=== PATIENT | female | born 1980 | race Caucasian/White ===

== ENCOUNTER 2020-03-10 22:19 | Emergency (ER) | payer BC ==
[~2020-03-10] VITALS: Ht 165.1 cm; Wt 64.2 kg
[2020-03-10 22:23] VITALS: BP 117/64
--- NOTE | 2020-03-11 00:16 | NUR ---
pt d/c with d/c summary. all questions answered. pt ambulates to registration desk with steady gait for d/c home. pt denies any other needs pertaining to this visit.
== END 2020-03-11 00:18 ==
LOC: ED 03-11 00:15
DX: S80.02XA Contusion of left knee, initial encounter (principal); X58.XXXA Exposure to other specified factors, initial encounter; Y93.89 Activity, other specified; Y92.098 Other place in other non-institutional residence as the place of occurrence of the external cause; Y99.8 Other external cause status
CPT/HCPCS: 99283